=== PATIENT | male | born 1950 | race Caucasian/White ===

== ENCOUNTER → 2017-03-23 | Outpatient (CLI) | payer MEDICARE, OTHER | END | disposition home or self-care (01) | LOC: GMAB 10:45 | PROVIDERS: ATTEND Family Medicine | DX: E53.8 Deficiency of other specified B group vitamins (principal); R97.20 Elevated prostate specific antigen [PSA]; E55.9 Vitamin D deficiency, unspecified ==

== ENCOUNTER → 2017-04-06 | Outpatient (CLI) | payer MEDICARE, OTHER ==
--- NOTE | 2017-04-07 11:35 | CT ---
EXAM DESCRIPTION: Chest w/o Contrast CLINICAL HISTORY: SOB COMPARISON: None. TECHNIQUE: Noncontrast transaxial CT images of the chest are obtained. This exam was performed according to our departmental dose-optimization program, which includes automated exposure control, adjustment of the mA and/or kV according to patient size and/or use of iterative reconstruction technique . FINDINGS: Moderate coronary artery calcifications are seen. Moderate calcifications of the mitral valve annulus are seen. No pathologically enlarged mediastinal, hilar, or axillary lymphadenopathy seen. No pleural or pericardial effusion. Visualized portion of the upper abdomen shows enlargement of the liver measuring 21.1 cm and spleen measuring 14 cm. There is a partly visualized somewhat exophytic fluid attenuation cyst in the region of the mid to upper pole left kidney laterally measuring at least 9.5 x 5.9 cm. Lungs are hyperinflated. Moderate mostly paraseptal emphysematous changes to the lungs are seen. No worrisome pulmonary nodules are seen. Osseous structures show no aggressive bony lesions. There is partial interbody fusion from T9 through T12 with some degree of facet arthrodesis. IMPRESSION: Moderate mostly paraseptal emphysematous changes to the lungs are seen. Incidentally noted is hepatosplenomegaly. Partly visualized large exophytic cyst of the lateral midpole left kidney. Consider further evaluation with renal ultrasound. Atherosclerotic disease with coronary artery disease. Electronically signed by: Juno Landin MD 04/07/2017 11:34 AM CDT
== END | disposition home or self-care (01) ==
LOC: CT 14:49
PROVIDERS: ATTEND Family Medicine
DX: R06.02 Shortness of breath (principal)

== ENCOUNTER → 2017-04-18 | Outpatient (CLI) | payer MEDICARE, OTHER ==
--- NOTE | 2017-04-18 13:12 | US ---
EXAM DESCRIPTION: Renal CLINICAL HISTORY: 67 years Male, ACQ RENAL CYST COMPARISON: None FINDINGS: Right kidney measures 9.9 x 4.8 x 4.8 cm. No mass or cyst or hydronephrosis or perinephric fluid collection is seen. The left kidney measures 7.9 by a 5.9 x 4.3 cm. There is a very large exophytic unilocular simple appearing left renal cyst that projects lateral and superior to the kidney. Maximal dig dimensions are 9.0 x 9.8 x 6.2 cm. No hydronephrosis or other cysts or masses are noted. No free abdominal fluid is seen. The bladder was not evaluated. IMPRESSION: 1. Normal-appearing right kidney without cyst or mass or obstruction. 2. Mildly atrophic left kidney with a large 9.8 cm exophytic simple appearing renal cyst lateral and superior to the kidney Electronically signed by: Enrique Cruz MD 04/18/2017 1:10 PM CDT
== END | disposition home or self-care (01) ==
LOC: US 15:36
PROVIDERS: ATTEND Family Medicine
DX: N28.1 Cyst of kidney, acquired (principal)

== ENCOUNTER → 2017-12-21 | Outpatient (CLI) | payer MEDICARE, OTHER | LOC: GMAB 14:29 | PROVIDERS: ATTEND Family Medicine | DX: R53.82 Chronic fatigue, unspecified (principal); G60.3 Idiopathic progressive neuropathy; I73.9 Peripheral vascular disease, unspecified ==

== ENCOUNTER → 2018-12-20 | Outpatient (CLI) | payer MEDICARE, OTHER ==
--- NOTE | 2018-12-21 11:49 | CT ---
EXAM DESCRIPTION: CTA Runoff CLINICAL HISTORY: 68 years, Male, ABDOMINAL AORTIC ANEURYSM, WITHOUT RUPTURE COMPARISON: None TECHNIQUE: Rapid bolus administration of nonionicIV contrast was performed with thin-section axial scanning of the abdomen, pelvis, and lower extremities performed in a dynamic fashion. Reconstructed multiplanar and three dimensional MIP and/or VRT images were created on a separate dedicated workstation were reviewed along with the source axial images and stored in the patient's medical record. Stenoses were evaluated using the NASCET criteria. This exam was performed according to our departmental dose-optimization program, which includes automated exposure control, adjustment of the mA and/or kV according to patient size and/or use of iterative reconstruction technique. FINDINGS: CTA ABDOMEN: Bolus enhanced examination demonstrates mild splenomegaly and borderline hepatomegaly with fatty replaced liver with a small benign cyst in the dome of the liver. Gallbladder and biliary system appear unremarkable. A large 10 cm left renal cyst projecting laterally is benign in appearance with the right kidney unremarkable. Large and small bowel caliber is normal. The adrenal glands and fatty infiltrated pancreas are unremarkable. Small and large bowel caliber is normal. Bladder is incompletely distended mild prostatic hypertrophy noted. A 7.2 cm long infrarenal aortic aneurysm with maximal transverse diameters of 5.1 x 4.8 cm is present and terminates at the aortic bifurcation. No evidence of dissection or rupture noted. 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 Right renal artery is atherosclerotic but high-grade stenosis is not apparent. The left renal artery represents an anatomic variant and arises from the poststenotic dilated celiac axis and effectively the celiac stenosis creates left renal artery stenosis. A patent inferior mesenteric artery arises from the superior margin of the aortic aneurysm and extends into the pelvis. The aortic aneurysm arises 5 cm below the origin of the right renal artery. The aortic bifurcation is widely patent but moderately atherosclerotic in each common iliac artery. CTA PELVIS: Common iliac arteries are patent bilaterally and demonstrate normal bifurcation with mild atherosclerosis with satisfactory filling of each internal iliac vessel and patent mildly atherosclerotic external iliac arteries bilaterally that extend to the inguinal ligament with atherosclerotic but patent common femoral vessels. CTA RIGHT LOWER EXTREMITY: Common femoral artery is patent and demonstrates normal bifurcation with satisfactory filling of the profunda femoris vessel and atherosclerotic but intact superficial femoral artery with areas of [id number] but no high-grade stenosis and no occlusions. Widely patent popliteal artery and normal popliteal trifurcation is present without stenosis. Peroneal artery can be followed to the distal leg and a patent anterior tibial artery to the dorsalis pedis artery and dorsal arch and patent posterior tibial artery to the plantar arch is demonstrated. No significant stenosis noted. CTA LEFT LOWER EXTREMITY: Atherosclerotic calcification of the common femoral artery and bifurcation with widely patent profunda femoris and patent superficial femoral artery with multiple areas of mild to moderate stenosis is present. A focal greater than 50% stenosis of the mid superficial femoral artery without occlusion is present with additional areas of high-grade stenosis are not apparent. Popliteal artery is mildly atherosclerotic with normal popliteal trifurcation. Peroneal artery can be followed to the lower leg and a widely patent larger caliber posterior tibial artery to the plantar arch. There is a diminutive distal anterior tibial artery that opacifies a diminutive dorsalis pedis vessel but occlusion is not apparent and external tension of contrast to the dorsal arch is noted. Repeat delayed imaging suggests improved opacification of the anterior tibial and dorsalis pedis vessel suggesting delayed flow in this vessel. IMPRESSION: 1. Infrarenal aortic aneurysm 7.2 cm in length and 5.1 x 4.8 cm in transverse diameter. Vascular surgical consultation recommended. 2. 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 3. Scattered atherosclerosis involving the pelvic iliac vessels and both lower extremities with small focus of 60-80% stenosis of the mid superficial femoral artery on the left. 4. Satisfactory three-vessel runoff to the lower leg and two vessel runoff below the ankle mortise on the right with no significant stenoses noted. 5. Diminutive caliber and delayed filling of the left anterior tibial artery and dorsalis pedis artery possibly related to the superficial femoral stenosis with satisfactory posterior tibial filling of the plantar arch and peroneal artery filling to the lower leg level on the left. 6. Large 10 cm benign-appearing left renal cyst. 7. Fatty replaced liver. Electronically signed by: Enrique Cruz MD 12/21/2018 11:47 AM CDT
== END ==
LOC: LAB.O 07:36
PROVIDERS: ATTEND Family Medicine
DX: I71.4 Abdominal aortic aneurysm, without rupture (principal); I70.213 Atherosclerosis of native arteries of extremities with intermittent claudication, bilateral legs; I70.1 Atherosclerosis of renal artery; N28.1 Cyst of kidney, acquired; K76.0 Fatty (change of) liver, not elsewhere classified

== ENCOUNTER → 2019-03-22 | Outpatient (CLI) | payer MEDICARE, OTHER ==
--- NOTE | 2019-03-22 13:05 | CT ---
EXAM DESCRIPTION: CTA Abdomen (accession [id number]), CTA Pelvis (accession [id number]) Abdominal and pelvic CT angiogram without and following administration of IV contrast. CLINICAL HISTORY: 69 years, Male, AORTA. Patient with prior history of flow infrarenal aortic aneurysm status post endovascular repair with placement of endovascular stent graft. COMPARISON: CT abdomen dated December 20, 2018. Technique: Abdominal and pelvic CT angiogram was obtained with administration of IV contrast from the lung bases to below the proximal femoral level. Reformatted coronal and sagittal images also obtained and reviewed. This exam was performed according to our departmental dose-optimization program, which includes automated exposure control, adjustment of the mA and/or kV according to patient size and/or use of iterative reconstruction technique. Findings: CT ANGIOGRAM: The suprarenal abdominal aorta demonstrates mild atherosclerotic calcifications, otherwise appears grossly unremarkable. Interval postsurgical changes consistent with repair of the previously noted infrarenal abdominal aortic aneurysm with endograft placement, the modular bifurcated endograft extending from just at the origin of celiac trunk and extending into both proximal common iliac arteries. Stable 4.8 x 4.6 cm infrarenal abdominal aortic aneurysm with mural thrombus. No evidence of extraluminal contrast to suggest endoleak. Moderate degree of stenosis is noted at the origin of celiac trunk likely sequela of prior atherosclerotic disease. However rest of the celiac trunk and its branches are well opacified. The SMA and bilateral renal arteries are well-opacified with no hemodynamically significant stenosis. Variant anatomy is noted as the left renal arteries is originating from the celiac trunk and the right renal artery is arising from the abdominal aorta. The JULIÁN is well opacified with no hemodynamically significant stenosis. Bilateral Bilateral internal and external iliac arteries demonstrate moderate atherosclerotic disease with no hemodynamically significant stenosis. Bilateral common femoral, proximal SFA and profunda femoris arteries are well-opacified with no hemodynamically significant stenosis. 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 NONANGIOGRAPHIC EVALUATION: The visualized lower thorax demonstrates mild emphysematous changes. The liver appears grossly unremarkable with no focal mass lesion or intrahepatic ductal dilatation. The gallbladder, spleen, pancreas and left adrenal gland appear grossly unremarkable. A stable 1.1 cm left adrenal gland is again noted. Both kidneys enhance symmetrically with no evidence of hydronephrosis, hydroureter or nephrolithiasis. Again noted is a large 9 cm exophytic cystic lesion in the upper pole of left kidney with a punctate thin peripheral rim of calcification most likely represents a Bosniak type II cyst. Moderate-sized hiatal hernia noted. Stable appearing paraesophageal nodes are noted measuring up to 8 mm. The stomach appears grossly unremarkable. The small and large bowel loops appear grossly unremarkable with no abnormal dilatation or wall thickening. Moderate amount of fecal burden is noted in the colon. No free intraperitoneal air or fluid. Stable-appearing the peripancreatic node measuring up to 1.2 cm likely reactive. The previously noted periaortic mildly prominent lymph nodes also appears stable in size. The urinary bladder is well-distended and appears grossly unremarkable. The prostrate appears grossly unremarkable. No free fluid in the pelvis. Soft tissue density changes as well as fat stranding in the right groin could be sequela of recent right groin access for the endovascular procedure. Review of the bone windows demonstrate no acute osseous abnormality. Degenerative changes of the lumbar spine more predominant at L5-S1 level. Impression: 1. Stable appearing 4.8 x 4.6 cm infrarenal abdominal aortic aneurysm with interval placement of endovascular stent graft, with the modular components extending from just at the origin of SMA up to bilateral proximal common iliac arteries. No evidence of extraluminal contrast to suggest endoleak. 2. Moderate degree of stenosis at the origin of celiac trunk noted, could be sequela of atherosclerotic disease, however the rest of the celiac trunk and its branches are well-opacified. 3. A 2.6 cm low-density lesion in the left groin closely abutting the left common femoral artery is concerning for a pseudoaneurysm in this patient with recent left groin access. An ultrasound of the left groin is recommended for further evaluation. 4. Stable 1.1 cm indeterminate left adrenal nodule. Electronically signed by: Fritz Newman MD 03/22/2019 1:03 PM CDT
== END ==
LOC: CT 08:52
PROVIDERS: ATTEND Internal Medicine
DX: I71.4 Abdominal aortic aneurysm, without rupture (principal); I77.4 Celiac artery compression syndrome; R19.09 Other intra-abdominal and pelvic swelling, mass and lump; E27.9 Disorder of adrenal gland, unspecified

== ENCOUNTER → 2019-06-20 | Outpatient (CLI) | payer MEDICARE, OTHER | LOC: GMAE 10:42 | PROVIDERS: ATTEND Family Medicine | DX: Z12.5 Encounter for screening for malignant neoplasm of prostate (principal); E03.9 Hypothyroidism, unspecified; I10 Essential (primary) hypertension; E78.2 Mixed hyperlipidemia | CPT/HCPCS: 84439; 84443; 84481; G0103 ==

== ENCOUNTER → 2019-08-13 | Outpatient (CLI) | payer MEDICARE, OTHER | LOC: GMAE 12:51 | PROVIDERS: ATTEND Family Medicine | DX: R11.2 Nausea with vomiting, unspecified (principal) ==

== ENCOUNTER → 2019-12-24 | Outpatient (CLI) | payer MEDICARE, OTHER | LOC: GMAE 11:02 | PROVIDERS: ATTEND Family Medicine | DX: E03.9 Hypothyroidism, unspecified (principal); E78.2 Mixed hyperlipidemia; Z79.891 Long term (current) use of opiate analgesic ==

== ENCOUNTER → 2020-05-26 | Outpatient (CLI) | payer MEDICARE, OTHER | LOC: GMAE 15:16 | PROVIDERS: ATTEND Family Medicine | DX: E03.9 Hypothyroidism, unspecified (principal); I10 Essential (primary) hypertension; E78.5 Hyperlipidemia, unspecified ==

== ENCOUNTER → 2020-06-03 | Outpatient (CLI) | payer MEDICARE, OTHER | LOC: GMAE 15:34 | PROVIDERS: ATTEND Family Medicine | DX: D50.8 Other iron deficiency anemias (principal) ==

== ENCOUNTER 2020-06-22 05:02 | Day surgery (SDC) | payer MEDICARE, OTHER ==
[2020-06-22] MEDS ORDERED: MOXIFLOXACIN HCL (OPHTH) 1 DROP DROPS ONE (08:36)
[2020-06-22] MEDS ORDERED: TROP1%/CYCLOPEN 1%/PHENYL 2.5% DROPS ONE (08:37)
[2020-06-22] MEDS ORDERED: PROPARACAINE 0.5% OPHTH SOL 15 ML BTTL ONE (08:37)
[2020-06-22] MEDS ORDERED: DEXAMETHASONE 0.1% OPHTH SOL 1 DROP RIGHT_EYE ONE ×2 (08:42→09:02)
[2020-06-22] MEDS ORDERED: LIDOCAINE 1% 2 ML VIAL INJ ONE ×2 (08:42→09:02)
[2020-06-22] MEDS ORDERED: MOXIFLOXACIN HCL (OPHTH) 1 DROP DROPS RIGHT_EYE ONE ×2 (08:42→09:02)
[2020-06-22] MEDS ORDERED: PROPARACAINE 0.5% OPHTH SOL 15 ML BTTL RIGHT_EYE ONE ×2 (08:42→09:02)
[2020-06-22] MEDS ORDERED: TOBRAMYCIN SULF 0.3 % OPHT SOL 1 DROP RIGHT_EYE ONE ×2 (08:43→09:02)
[2020-06-22] MEDS ORDERED: BRIMONIDINE 0.2% OPHTH DROPS RIGHT_EYE ONE ×2 (08:43→09:02)
[2020-06-22] MEDS ORDERED: MIDAZOLAM INJ 2 MG/2 ML VIAL ONE (09:00)
== END 2020-06-22 10:20 | disposition home or self-care (01) ==
LOC: AMB 05:02
PROVIDERS: ATTEND Ophthalmology
DX: H25.11 Age-related nuclear cataract, right eye (principal); I10 Essential (primary) hypertension; Z88.5 Allergy status to narcotic agent; Z88.2 Allergy status to sulfonamides; Z79.899 Other long term (current) drug therapy
CPT/HCPCS: 00142; 66984; J2250

== ENCOUNTER 2020-07-06 06:49 | Day surgery (SDC) | payer MEDICARE, OTHER ==
[~2020-07-06 06:49] MED LIST: MOXIFLOXACIN HCL (OPHTH) 1 DROP DROPS ONE; PROPARACAINE 0.5% OPHTH SOL 15 ML BTTL ONE; TROP1%/CYCLOPEN 1%/PHENYL 2.5% DROPS ONE
[2020-07-06] MEDS ORDERED: MIDAZOLAM INJ 2 MG/2 ML VIAL ONE (08:13)
[2020-07-06] MEDS ORDERED: SODIUM CHLORIDE 0.9% (FLUSH) 10 ML SYG ONE (08:16)
[2020-07-06] MEDS ORDERED: PROPARACAINE 0.5% OPHTH SOL 15 ML BTTL LEFT_EYE ONE (08:56)
[2020-07-06] MEDS ORDERED: LIDOCAINE 1% MPF 2 ML VIAL INJ ONE (09:06)
[2020-07-06] MEDS ORDERED: MOXIFLOXACIN HCL (OPHTH) 1 DROP DROPS LEFT_EYE ONE ×2 (09:06→09:17)
[2020-07-06] MEDS ORDERED: DEXAMETHASONE 0.1% OPHTH SOL 1 DROP LEFT_EYE ONE ×2 (09:07→09:17)
[2020-07-06] MEDS ORDERED: TOBRAMYCIN SULF 0.3 % OPHT SOL 1 DROP LEFT_EYE ONE ×2 (09:07→09:17)
[2020-07-06] MEDS ORDERED: BRIMONIDINE 0.2% OPHTH DROPS LEFT_EYE ONE ×2 (09:07→09:17)
== END 2020-07-06 09:50 | disposition home or self-care (01) ==
LOC: AMB 06:49
PROVIDERS: ATTEND Ophthalmology
DX: H25.12 Age-related nuclear cataract, left eye (principal); I10 Essential (primary) hypertension; J44.9 Chronic obstructive pulmonary disease, unspecified; Z88.2 Allergy status to sulfonamides; Z88.5 Allergy status to narcotic agent; Z79.899 Other long term (current) drug therapy
CPT/HCPCS: 00142; 66984; A4216; J2250